=== PATIENT | male | born 1990 | race Caucasian/White ===

== ENCOUNTER 2018-02-25 23:17 | Emergency (ER) | payer OTHER ==
[~2018-02-25] VITALS: Ht 175.3 cm; Wt 111.1 kg
[2018-02-25 23:40] VITALS: BP 128/77
[2018-02-26] MEDS ORDERED: Lidocaine 1% Plain 30 ml INJ ONE
[2018-02-26] MEDS ORDERED: Acetaminophen 500mg (ES) tab PO ONE
[2018-02-26] MEDS ORDERED: Neosporin Oint Ud Pkt TOP ONE
--- NOTE | 2018-02-26 00:55 | Emergency Room Report ---
History of Present Illness General Chief Complaint: Laceration Source: Patient Present Illness HPI Pt. 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 C/o lac to left pinky about two hours ago. No other injury/complaint. Allergies: Coded Allergies: No Known Allergies (Unverified , 02/25/18) Nursing Documentation-[facility] Past Medical History: No Stated History Review of Systems Constitutional: Reports: no symptoms Eye: Reports: no symptoms ENT: Reports: no symptoms Respiratory: Reports: no symptoms Cardiovascular: Reports: no symptoms Gastrointestinal: Reports: no symptoms Genitourinary: Reports: no symptoms Musculoskeletal: Reports: no symptoms Skin: Reports: no symptoms Psychiatric: Reports: no symptoms Neurological: Reports: no symptoms Endocrine: Reports: no symptoms Hematologic/Lymphatic: Reports: no symptoms Allergic: Reports: no symptoms All Other Systems: negative except mentioned in HPI Physical Exam Vital Signs Date Time Temp Pulse Resp B/P (MAP) Pulse Ox O2 Delivery O2 Flow Rate FiO2 02/25/18 23:35 97.8 86 15 128/77 94 97.9 02/25/18 23:40 Room Air Sp02 EP Interpretation: reviewed, normal General Appearance: normal inspection, well appearing, no apparent distress, alert, GCS 15, non-toxic Head: normocephalic, atraumatic Eyes: bilateral eye normal inspection, bilateral eye PERRL, bilateral eye EOMI ENT: normal ENT inspection, hearing grossly normal, normal pharynx, no angioedema, normal voice, moist mucus membranes Neck: normal inspection, full range of motion, supple, no meningismus, no bony tend Respiratory: normal inspection, lungs clear, normal breath sounds, no rhonchi, no respiratory distress, no retraction, no accessory muscle use, no wheezing Cardiovascular #1: normal inspection, regular rate, rhythm, no edema Gastrointestinal: normal inspection, normal bowel sounds, non tender, soft, no mass, non-distended Musculoskeletal: gait/station normal, normal range of motion, other - left pinky: one cm lac horizontal distal phalynx volar surface Neurologic: normal inspection, alert, oriented x3, responsive, motor strength/ tone normal Psychiatric: normal inspection, judgement/insight normal, memory normal Suicide Risk Assessment: Suicidal Ideation: No Had intent to initiate attempt: No Pt's plan for suicide attempt: No Has means to complete attempt: No Skin: normal inspection, normal color, no rash, warm/dry Medical Decision Making Diagnostic Impression: Primary Impression: Laceration ER Course Procedure: Laceration repair by Benjy Gordillo MD. Location: left pinky The skin edges of the laceration were infiltrated with a total of 2 mL of 1% lidocaine without epinephrine. The area of the laceration was soaked in betadine/saline solution. The laceration was prepped in sterile fashion with sterile drapes. On examination under direct light, there was no foreign body seen. The laceration was repaired in simple interrupted technique using 5.0 prolene sutures. A total of three sutures were placed. After repair, the laceration was two cm in length. There was no continuing bleeding on repair and there did not appear to be any complication related to repair. Motor/sensory distally intact. Last Vital Signs Date Time Temp Pulse Resp B/P (MAP) Pulse Ox O2 Delivery O2 Flow Rate FiO2 02/26/18 00:17 97.9 02/25/18 23:40 75 15 128/77 94 Room Air Status: improved Disposition: HOME, SELF-CARE Referrals: NOT CHOSEN IPA/,REFERRING (PCP) Patient Instructions: Laceration Care, Adult Bj Gordillo M.D. Feb 26, 2018 00:55
[2018-02-26 01:00] VITALS: BP 128/77
== END 2018-02-26 01:00 | disposition home or self-care (01) ==
LOC: EMR 23:45
DX: S61.217A Laceration without foreign body of left little finger without damage to nail, initial encounter (principal); W26.0XXA Contact with knife, initial encounter; Y93.89 Activity, other specified; Y92.89 Other specified places as the place of occurrence of the external cause; Y99.0 Civilian activity done for income or pay
CPT/HCPCS: 12001; 99283; J2001